=== PATIENT | female | born 1945 | race Caucasian/White ===

== ENCOUNTER → 2023-06-09 09:25 | Outpatient (REF) | payer OTHER, SELFPAY | LOC: HWCARD 09:25 | PROVIDERS: ATTENDING PHYSICIAN Physical Medicine & Rehabilitation; FAMILY PHYSICIAN Internal Medicine | DX: Z01.818 Encounter for other preprocedural examination (principal) | CPT/HCPCS: 93005 ==

== ENCOUNTER 2023-08-30 15:41 | Inpatient (IN) | payer OTHER, SELFPAY ==
[2023-08-30] VITALS (10 sets, daily range): BP systolic 101–157; BP diastolic 60–96; BMI 33.1; BMI 32.8
--- NOTE | 2023-08-30 10:22 | ED.GENMED ---
History of Present Illness
General
Chief Complaint: Dizziness
Source: patient
Time Seen by Provider: 08/30/23 10:08
History of Present Illness
History of Present Illness:
78-year-old female with past medical history of CVA/TIA, hypertension, hyperlipidemia presenting to the emergency department for evaluation after she started experiencing 2 days of dizziness/lightheadedness/feeling as if she were drifting or going
to fall accompanied with word finding difficulty and stating while trying to dial a number on her cell phone she would think of the number but would still dialed the wrong number. She also states she would think of the number to put in on the
television remote the wrong buttons. She contacted her primary care provider this morning who recommended patient come to the emergency department for further evaluation. Patient states no new symptoms at this time. Yesterday she also noted some
pain on the right upper extremity but states this is resolved. Patient takes daily Plavix for which she reports good compliance with. She is also on a statin. She is otherwise denying any palpitations, chest pain, shortness of breath, headache,
visual disturbances or any other concerns presently.
Past History
Past History
ED Past Medical History: CVA, HTN and Hypercholesterolemia
ED Past Surgical History: Cardiac, Gynecological, Orthopedic and Tonsilectomy
Social History
Tobacco: Non-smoker
Alcohol: None
Drug: None
Personal:
Living: with family
Review of Systems
Review of Systems
All Other Systems: ROS reviewed and negative except as documented in HPI and ROS
Phy Exam
Physical Exam
Physical Exam:
GENERAL: Alert , in no apparent distress
Head: Normocephalic atraumatic
EYE: pupils equal and reactive, 4 mm bilateral, EOMI, no visual field cuts
NECK: Supple
ENT: o/p clr, mmm.
CARDIAC: Regular rate and rhythm, no murmur.
LUNGS: Clear breath sounds bilaterally, no acute respiratory distress, no wheezes/rales/rhonchi
ABDOMEN: Soft, without focal tenderness, no r/g, no cvat
NEUROLOGICAL: Alert and oriented x 3, no focal neuro deficits, moves all extremities, sensation grossly intact to light touch, no ataxia, no dysmetria or dysarthria or aphasia
SKIN: Warm and dry, skin intact.
MUSCULOSKELETAL: well perfused.
PSYCH: Normal and appropriate interaction.
Scores
NIH Stroke Score
Level of Consciousness: 0 - Alert
LOC Questions: 0-Answers both correctly
LOC Commands: 0-Performs both correctly
Best Horizontal Gaze: 0-Normal
Visual Rivera: 0=Normal, no visual loss
Facial Palsy: 0=Normal, symmetrical
Motor - Right Arm: 0=No drift 10 seconds
Motor - Left Arm: 0=No drift 10 seconds
Motor - Right Le-No drift 5 seconds
Motor - Left Le-No drift 5 seconds
Limb Ataxia: 0-Absent
Sensation: 0-Normal
Best Language: 0-No aphasia
Dysarthria: 0-Normal
Extinction and Inattention: 0-No abnormality
Total Score:: 0
Heart Failure Risk
Heart Failure Risk Score: Not Applicable
Heart Score for Chest Pain Patients
STEMI patient?: Not applicable
Withdrawal Assessment of Alcohol
Withdrawal Assessment Completed?: Not applicable
Course
Orders/Labs/Results
Orders:
Orders
08/30/23 09:10
CT Head W/o Iv Contrast Urgent
Comment:
Reason For Exam: dizziness and forgetting things
08/30/23 09:53
Electrocardiogram (*1) Urgent
Reason for Study: Vertigo / Dizzy
08/30/23 09:54
EKG- Treatment ONCE
08/30/23 09:56
Basic Metabolic Panel Urgent
Complete Blood Count/With Diff Urgent
Troponin I Urgent
08/30/23 10:20
Aspirin 325 mg PO NOW STA
Clopidogrel Bisulfate [Plavix] 225 mg PO NOW STA
08/30/23 11:41
Echo 2D MMode Color/Doppler Routine
Reason for Study: Thrombotic source for stroke-like sxs
MA [place] Routine
Comment:
Reason For Exam: intracranial stenosis
Recent pill cam endoscopy?: No
MA Neck With Contrast Routine
Reason For Exam: stenosis
Recent pill cam endoscopy?: No
MR Brain Without Contrast Routine
Comment:
Reason For Exam: Eval right BG stroke
Recent pill cam endoscopy?: No
NIH Stroke Scale As Directed
Neurological Checks As Directed
Frequency: Per unit guidelines
08/30/23 14:54
Occupational Therapy Consult [Ot Eval And Treat] Routine
Physical Therapy Consult [Pt Eval And Treat] Routine
Activity Level: Out of Bed- Chair
08/30/23 18:00
Rosuvastatin Calcium [Crestor] 40 mg PO QPM
08/31/23 08:00
Aspirin Low Dose EC [Aspir Low (Enteric Coated)] 81 mg PO DAILY
Clopidogrel Bisulfate [Plavix] 75 mg PO DAILY
Abnormal Lab Results
08/30/23
09:56
MPV 12.2 H fL
(7.4-10.4)
Lymphocytes % 19.5 L %
(20.5-51.1)
BUN 26 H mg/dl
(7-17)
Glucose 144 H mg/dl
(70-99)
08/30/23 09:56
08/30/23 09:56
Vital Signs
Initial and Last Documented VS:
Initial Vital Signs
Temp Pulse Resp BP Pulse Ox
98.0 F 102 16 111/81 98
08/30/23 09:05 08/30/23 09:05 08/30/23 09:05 08/30/23 09:05 08/30/23 09:05
Last Documented Vital Signs
Temp Pulse Resp BP Pulse Ox
98.0 F 102 16 118/80 98
08/30/23 09:05 08/30/23 09:05 08/30/23 09:05 08/30/23 11:00 08/30/23 09:05
MDM/Problems Addressed
Differential Diagnosis Includes:
CVA/TIA, less likely a metabolic encephalopathy, electrolyte disturbance
MDM/Problems Addressed:
78-year-old female presenting the emergency department for evaluation of lightheadedness/dizziness, word finding difficulty and difficulty using cell phone as well as Performing routine tasks. There are no fevers or infectious symptoms. Patient
is without any focality on her neuroexam. Head CT, labs and EKG ordered. Will discuss case with neuro. Reassessment following
Chronic conditions affecting care: Neurological disorder (Previous CVA/TIA)
Acute Exacerbation and/or Progression of Chronic Illness: Neurological disorder (New CVA)
*Radiology
Radiology exam reviewed: radiology read reviewed (Patient appears to have a new CVA within the left internal capsule/parietal lobe)
*Pulse Oximetry
Patient hypoxic: no
*Doctor Naturopathic Interpretation
Rate: normal
Rhythm: sinus
*Critical Care Note
Total Time (30-74mins, 75-104mins- exclusive of procedures): Not Applicable
Data Reviewed
Review of Other/Old Records Reveals: Labs and Records
Source: patient
Patient Management
Discussion with other providers: Hospitalist, Director Of Retention and Radiologist
Escalation/DeEscalation of care consider admission/obs:
Informed by neurology that patient has a hypoattenuation within the left internal capsule/parietal lobe which is new compared to prior study concerning for cerebral infarction. Discussed with neurology who would like aspirin and Plavix load.
Patient already took 75 mg of Plavix earlier this morning so 225 mg was ordered. Hospitalist team notified and accepts for continued evaluation and treatment of suspected new CVA.
ED Attending Note
-
Portions of this chart may have been created with voice recognition software.� Occasional wrong word or��sound alike� substitutions may have occurred due to the inherent limitations of voice recognition software.
Discharge Plan
Departure
Patient Disposition: Admit
Date of Disposition: 08/30/23
Time of Disposition: 10:22
Presentation/result/management discussed w/ accepting MD/DO: Hospitalist
Discharge Problem:
Ischemic cerebrovascular accident (CVA)
Prescriptions:
No Action
lisinopril 20 MG tablet
20 mg PO DAILY
clopidogrel [Plavix] 75 MG tablet
75 mg PO DAILY
hydrochlorothiazide 25 MG tablet
25 mg PO DAILY
rosuvastatin 20 MG tablet
20 mg PO QPM Qty: 30 0RF
Systane (PF) 0.4-0.3 % Dropperette
1 drp BOTH EYES BIDPRN PRN (Reason: dry eyes)
Referrals:
Luis Fernando Mittal MD [Family Provider] -
Interventions
Interventions:
*Risk Screen - Suicide Last Done: 08/30/23 10:44
*Neglect/Abuse Screening Last Done: 08/30/23 10:44
ED- Neurological Assessment Last Done: 08/30/23 14:39
ED- Cardiac Assessment Last Done: 08/30/23 10:44
ED Swallowing Screen Last Done: 08/30/23 10:44
Discharge Date and Time
Print Language: K[place]
[2023-08-30 10:34] LABS: Blood Urea Nitrogen 26 mg/dl (7-17); Calcium 9.4 mg/dl (8.4-10.2); Carbon Dioxide 24 mmol/L (22-30); Chloride 106 mmol/L (98-107); Glucose 144 mg/dl (70-99); Potassium 3.7 mmol/L (3.5-5.1); Sodium 139 mmol/L (135-145); eGFR 58.02
[2023-08-30] MEDS: PLAVIX 225 MG PO (10:37)
[2023-08-30] MEDS: ASPIRIN 325 MG PO (10:37)
[2023-08-30 10:40] LABS: Troponin I < 0.012 ng/ml
[2023-08-30 11:24] LABS: % Basophils 0.6 % (0-2); % Eosinophils 0.4 % (0-6); % Immature Granulocytes 0.3 % (0-0.5); % Lymphocytes 19.5 % (20.5-51.1); % Monocytes 8.1 % (1.7-9.3); % Neutrophils 71.1 % (42.2-75.2); Absolute Basophils 0.1 10^3/uL (0-0.2); Absolute Lymphocytes 1.5 10^3/uL (1.2-3.4); Absolute Monocytes 0.6 10^3/uL (0.1-0.6); Absolute Neutrophils 5.5 10^3/uL (1.4-6.5); Hematocrit 38.4 % (37.0-47.0); Mean Corp Hgb Conc. 33.9 g/dL (33.0-37.0); Mean Corpuscular Hgb 30.4 pg (27.0-31.0); Mean Corpuscular Volume 89.9 fL (81.0-99.0); Mean Platelet Volume 12.2 fL (7.4-10.4); Nucleated Red Blood Cells % 0 %; Platelet Count 212 10^3/uL (130-400); Red Blood Cell Count 4.27 10^6/uL (4.20-5.40); Red Cell Dist. Width 12.9 % (11.5-14.5); White Blood Cell Count 7.8 10^3/uL (4.8-10.8)
--- NOTE | 2023-08-30 15:32 | HPS.HSE ---
Addendum entered and electronically signed by Alvaro Ahn MD 08/30/23 17:15:
I saw and examined the patient.
The PEN MAKER or PA's note was reviewed and I agree with the note.
Comment: 78 y/o female with a PMH of CVA/TIA, PFO Closure, HTN, and HLD who reports to the ED for dizziness and word finding difficulty x 2 days.. Found to have acute cva Left Internal Capsule. Neuro consulted. no carotid stenosis. DAPT. pt/ot/st.
a1c, lipid panel f/u. permissive htn.ECHO
Original Note:
Family Physician
-
Family Physician: Luis Fernando Mittal
Chief Complaint
-
Speech Difficulty
History of Present Illness
Patient is a 78 y/o female with a PMH of CVA/TIA, PFO Closure, HTN, and HLD who reports to the ED for dizziness and word finding difficulty x 2 days. Patient states she has been dizzy for the past week. Over the weekend she started to having
difficulty finding words, trouble using her cell phone and the remote for her television. She called her PCP office today and was advised to come to the ED. She has also been having headaches x 2 weeks that were relieved with Tylenol. She has a
history of migraines but hasn't had a headache in years. She a history of a CVA 20 years ago and a TIA 6 years ago. She takes Plavix daily and reports compliance. She denies chest pain, palpitations, shortness of breath, vision changes, fever, or
chills. She denies smoking and alcohol use
Medical History
Past Medical History
Past Medical History: Reports Other
Additional Past Medical History:
Essential Hypertension
Hyperlipidemia
CVA/TIA
Anxiety/Depression
Past Surgical History: Reports Other
Additional Past Surgical History:
PFO Closure
Hysterectomy
Uvular and Tonsillectomy
Deviated Septum Repair
Left Rotator Cuff
Right Knee Meniscal Tear
Social History
Tobacco: Non-smoker
Alcohol: None
Family History
Family History: Not pertinent
Allergies / Home Medications
Allergies reflects when Allergies were last updated in [employer].
Home Medications with original date entered in [employer]
Allergy/Medication List:
Allergies
Allergy/AdvReac Type Severity Reaction Status Date / Time
penicillin G Allergy Swelling Verified 08/30/23 09:08
Penicillins Allergy Swelling Verified 08/30/23 09:08
warfarin Allergy Rash Verified 08/30/23 09:08
[id number] - Not Allergy Unknown Uncoded 08/30/23 09:08
Converted 38. See Text.
Home Medications
clopidogrel 75 mg tablet (Plavix) 75 mg PO DAILY 01/05/17
hydrochlorothiazide 25 mg tablet 25 mg PO DAILY 01/05/17
lisinopril 20 mg tablet 20 mg PO DAILY 01/05/17
rosuvastatin 20 mg tablet 20 mg PO QPM ##30 01/06/17
peg 400-propylene glycol (PF) 0.4 %-0.3 % eye drops in a dropperette (Systane (PF)) 1 drp BOTH EYES BIDPRN PRN dry eyes 08/30/23
Review of Systems
-
A 12 point ROS was completed and negative except as noted: Yes
Constitutional: Denies Fever or Chills
Respiratory: Denies Cough or Trouble Breathing
Cardiac: Denies Chest Pain or Palpitations
Abdomen/GI: Denies Abdominal Pain, Nausea, Vomiting or Diarrhea
Physical Exam
Vital Signs
Vital Signs
Temp Pulse Resp BP Pulse Ox
98.0 F 102 16 118/80 98
08/30/23 09:05 08/30/23 09:05 08/30/23 09:05 08/30/23 11:00 08/30/23 09:05
Physical Exam
General: Comfortable and Conversant
HEENT: Anicteric and Moist mucous membranes
Respiratory: Clear and Non Labored Respirations
Cardiac: S1/S2 and Regular Rhythm
GI: Soft and Non Tender
Rectal: Deferred by Provider
Musculoskeletal: No Clubbing, No Cyanosis and No Edema
Skin: Warm and Dry
Neuro: Awake, Alert, Oriented and Other (Speech is slow with occasional word finding difficulty during my evaluation)
Psych: Calm
Laboratory Results
-
08/30/23 09:56
08/30/23 09:56
Laboratory Results
Total Bilirubin Cancelled 08/30/23 09:56
AST Cancelled 08/30/23 09:56
ALT Cancelled 08/30/23 09:56
Alkaline Phosphatase Cancelled 08/30/23 09:56
Troponin I < 0.012 ng/ml 08/30/23 09:56
Data Reviewed
-
CT Scan: Report Reviewed by me
MRI: Report Reviewed by me
Lab Data: Labs Reviewed by me
Impression/Plan
-
Acute Stroke of Left Internal Capsule
-Consult Neurology
-Continue Aspirin and Plavix
-Check HgbA1c and FLP
-Check Echo
-Consult PT/OT and Speech
Essential Hypertension
-Goal is normotension as onset of symptoms was over 24 hours ago
-Continue Lisinopril and HCTZ
Hyperlipidemia
-Continue Crestor - Dose increased by Neurology
DVT proph: SCDs
Code Status: Full Code
--- NOTE | 2023-08-30 18:40 | PTCARENOTE ---
Received pt from ED.Pt awake, alert and oriented x3. Pt has no c/o pain at this time, VSS 95% on RA, NSR on tele. Pt NIH: 1 Some very mild aphasia noted, pt does report this was one of the symptoms that prompted her coming to ER. Pt also notes some
dizziness with standing, instructed to ring for assistance, verbalized understanding. Pt oriented to room, call lmi within reach, plan of care continues.
[2023-08-31] VITALS (8 sets, daily range): BP systolic 87–148; BP diastolic 55–78; PULSE 69; O2SAT 98; BMI 32.8
[2023-08-31 05:35] LABS: Hemoglobin 11.6 g/dL (12.0-16.0); Mean Corp Hgb Conc. 34.1 g/dL (33.0-37.0); Mean Corpuscular Hgb 31.4 pg (27.0-31.0); Mean Corpuscular Volume 91.9 fL (81.0-99.0); Mean Platelet Volume 11.9 fL (7.4-10.4); Platelet Count 166 10^3/uL (130-400); Red Cell Dist. Width 12.9 % (11.5-14.5); White Blood Cell Count 6.1 10^3/uL (4.8-10.8)
[2023-08-31 05:48] LABS: Blood Urea Nitrogen 20 mg/dl (7-17); Calcium 9.4 mg/dl (8.4-10.2); Carbon Dioxide 28 mmol/L (22-30); Chloride 104 mmol/L (98-107); Estimated Creatinine Clearance 42 ml/min; Glucose 93 mg/dl (70-99); HDL Cholesterol 53 mg/dl; LDL Cholesterol, Calculated 68 mg/dl; Potassium 3.6 mmol/L (3.5-5.1); Sodium 140 mmol/L (135-145); Total Cholesterol 142 mg/dl (50-199); Triglyceride 106 mg/dl (10-149); Very Low Density Lipoprotein 21 mg/dl (0-30); eGFR 51.75
[2023-08-31] MEDS: PLAVIX 75 MG PO (08:40)
[2023-08-31] MEDS: ASPIR LOW (ENTERIC COATED) 81 MG PO (08:40)
--- NOTE | 2023-08-31 08:44 | CON.NEURO4 ---
Documented by User: China Sullivan NP 08/31/23 10:35
Consultation - Neurology 4
-
CONSULTING PHYSICIAN: Cristhian Gonzales MD
REFERRING PHYSICIAN: Hospitalists/Radha Salas PA-C
DICTATED BY: ANGELO Martinez
DATE/TIME OF REQUEST: 08/30/23
DATE/TIME OF CONSULTATION: 08/31/23
Reason for Consultation: CVA
History of Present Illness:
This is a 78-year-old right-handed female who has presented to the hospital on 08/30/23 with report of word finding difficulty, feeling off-balance, and difficulty using electronic devices. Patient has a PMH of right occipital CVA in 2000 and was
evaluated by our inpatient Neurology service in December 2016 for dizziness and unsteady gait. MRI brain 01/05/17 was negative, her symptoms resolved and the event was deemed BPPV.
From previous evaluation by Neurology ANGELO Prajapati on 01/05/17:
'This is a 71 year old right handed female who has presented to the hospital with sudden onset of dizziness with room spinning sensation followed by nausea and unsteady gait. Patient's symptoms began at 0230am when she awoke from sleep and felt
like there was an earthquake going on and the room was spinning around her. She got out of bed to go to the window and was unsteady on her feet and eventually fell to the ground. She lay there for a little while and then eventually got up, went to
the bathroom and went back to bed. She was normal prior to going to sleep at 2300. Around 345am she developed nausea and vomiting 'foam but no food' so decided she should come to the hospital. She denies any associated double vision, ringing in the
ear, hearing loss, recent URI, speech changes or focal weakness or numbness or hand coordination difficulty. She did feel the dizziness worsened with changing position and walking and improves when she closes her eyes. The dizziness occurs when
opening her eyes but it improves as she keeps her eyes open. She does feel the dizziness is improved and her gait is improved but not back to normal. She developed perioral numbness that started upon arrival to the floor. She is on Plavix for her
prior stroke but did skip the last 2 days doses accidentally. She had a history of dizziness with LUQ field cut in 2000 at which time she had a posterior circulation stroke which was felt to be caused by her migraine history as well as a PFO which
was subsequently surgically closed. She followed up with a neurologist Dr. Milligan for her stroke and migraine history but he retired and she has not seen one in a few years since then. Her last migraine was over a year ago. She denies any residual
deficits from her stroke, her vision returned slowly over a year.'
Patient has been taking Plavix 75mg daily since her stroke in 2000 and denies missing any doses. One week ago, she reports feeling dizzy, which she describes as off-balance. This sensation has fluctuated, resolves at times but is currently present.
Two days later on 08/27/23 she reports starting to have difficulty with word finding which has persisted. On 08/28/23 she reports having a sensation change in her RUE that has since resolved. Then on 08/29/23 she reports suddenly having difficulty
using her cell phone and her TV remote. Initially she was concerned her symptoms were associated with new onset Alzheimer's disease, she called her PCP yesterday (08/30/23) and was referred to the ER for for evaluation. CT head was obtained on
arrival and demonstrates a new focus of hypoattenuation within the left internal capsule/parietal lobe concerning for ischemic infarct. She was not a candidate for TNK/IAT due to being outside of the time window. Currently, she reports ongoing word
finding difficulty, unsteadiness, and a right posterior throbbing 3/10 head discomfort. She denies any vision changes, swallowing difficulty, numbness, weakness, nausea, chest pain, palpitations, and shortness of breath.
Past Medical History: R occipital ischemic stroke 2000, HTN, HLD, migraines, ocular migraines, BPPV, basal cell carcinoma, JAZ, anxiety, osteoporosis, diverticulitis, lumbar radiculopathy/spondylosis
Surgical History: PFO closure 2010, hysterectomy, tonsillectomy, uvula removal, septal defect repair, rotator cuff repair, knee surgery, L4-S1 TFESI
Family History: Sister- CVA age 50.
Social History: Denies alcohol, tobacco, and illicit drug use.
Allergies: Penicillins, warfarin.
Home Medications: See below.
Review of Symptoms:
Patient denies any fever, headache, chest pain, shortness of breath, GI or symptoms.
�Per the HPI.�All systems are reviewed negative except above.
Physical Exam:
The patient is afebrile, abdomen is nondistended, breathing is unlabored, skin is warm and dry, no edema.
NIH Stroke Scale:
I performed the NIH stroke scale on the patient on 08/31/23 at 0845. The patient scored ( ) points on the NIH stroke scale assessment, which were assigned as follows: See below.
Neurologic Examination:
The patient is awake, alert and oriented x 3. She is able to follow commands and answer questions appropriately. There is no aphasia or dysarthria. On cranial nerve assessment, pupils are 3 mm bilateral, round and reactive to light and
accommodation. Visual rivera are full. Extraocular movements are limited with up and down gaze. Facial sensations are intact and bilaterally symmetrical, there is no facial asymmetry. Hearing is intact bilaterally to normal conversation volume.
Uvula has been removed. Sternocleidomastoid strengths are full bilaterally. Motor strengths are 5/5 bilateral upper and lower extremities on medical research Stebbins scale. There is no drift or involuntary movement noted. Deep tendon reflexes are 2+
bilateral upper and lower extremities and Babinski is absent bilaterally. Sensations of pain, touch, temperature and vibration are intact and bilaterally symmetrical. There was no extinction noted on double simultaneous stimulation. Coordination is
intact by finger to nose bilaterally.
Lab Results: See below.
Neuro Imaging:
1. MRI brain 08/30/23: On the left, there is a focal area of abnormal restricted diffusion compatible with subacute infarction, corresponding to the region of decreased density seen on recent CT examination. See above description for measurements and
location. No other focal area of acute to subacute infarction. Mild to moderate diffuse atrophy. Mild to moderate T2 and FLAIR white matter hyperintensities, commonly seen with aging and usually attributed to small vessel ischemic disease. Focal
areas of old infarction as described.
2. MRA head/neck 08/30/23: No significant stenosis involving the intracranial circulation. Narrowing involving the proximal right ICA, measured diameter reduction of 41%. By measurement, and subjectively, this is unlikely to represent a
hemodynamically significant stenosis. Less than 25% diameter reduction of the left carotid bulb and left proximal ICA. No significant narrowing of the vertebral or basilar arteries.
Differentials for the patient's presentation include:
1. Subacute left lentiform nucleus/left internal capsule ischemic stroke; appearance supportive of hypertensive etiology but patient reports well-controlled blood pressure. Concern for potential cardiac or hypercoaguable source as this is her
second ischemic stroke.
2. Old right occipital ischemic stroke.
3. History of septal defect repair and PFO closure.
Patient has the following risk factors for their symptoms: Previous CVA, HTN, age
IV Tenecteplase/IAT candidacy: She was not a candidate for TNK/IAT due to being outside of the time window.
Recommendations:
-Continue DAPT with aspirin 81mg and Plavix 75mg daily for 21 days. Plavix efficacy testing pending.
-Cardiology evaluation, patient may benefit from LINQ monitoring.
-Goal normotension as it is greater than 24 hours from symptom onset.
-Provide prochlorperazine 10mg PO x1 now for head discomfort.
-LDL goal <70. LDL is 68. Home rosuvastatin 20mg daily increased to 40mg daily.
-Goal normoglycemia, hbA1c is 5.5.
-NIHSS and neurological checks per unit guidelines.
-Provide patient with stroke education packet.
-PT/OT/ST evaluations.
-DVT prophylaxis.
-Check hypercoagulable labs as an outpatient in 6 weeks.
-Patient should follow-up with Neurology as an outpatient, may see one of the physicians or the REGISTERED ART THERAPIST.
Discussed patient care with: Dr. Gonzales, the patient
Vital Signs and Labs
-
Vital Signs and Labs:
Vital Signs
Temp Pulse Resp BP Pulse Ox
98.2 F 59 16 130/71 98
08/31/23 07:20 08/31/23 07:20 08/31/23 07:20 08/31/23 07:20 08/31/23 07:20
Lab Results
08/31/23 04:29
08/31/23 04:29
Sodium 140 mmol/L (135-145) 08/31/23 04:29
Potassium 3.6 mmol/L (3.5-5.1) 08/31/23 04:29
BUN 20 mg/dl (7-17) H 08/31/23 04:29
Glucose 93 mg/dl (70-99) 08/31/23 04:29
Calcium 9.4 mg/dl (8.4-10.2) 08/31/23 04:29
LDL Cholesterol, Calc 68 mg/dl 08/31/23 04:29
Medications
-
Active Medications
Generic Name Dose Route Start Last Admin
Trade Name Freq PRN Reason Stop Dose Admin
Acetaminophen 650 mg 08/30/23 18:24
Acetaminophen 325 Mg Tablet PO 09/27/23 18:23
Q4HPRN PRN
mild pain/ fever>100.5F
Aspirin 81 mg 08/31/23 08:00 08/31/23 08:40
Aspirin 81 Mg (Enteric Coated) Tablet PO 09/28/23 07:59 81 mg
DAILY DEANNA Administration
Clopidogrel Bisulfate 75 mg 08/31/23 08:00 08/31/23 08:40
Clopidogrel 75 Mg Tablet PO 09/20/23 08:01 75 mg
DAILY DEANNA Administration
Hydralazine HCl 10 mg 08/30/23 18:24
Hydralazine 20 Mg/Ml Vial IV 09/27/23 18:23
Q4HPRN PRN
SBP>220
Prochlorperazine Maleate 10 mg 08/31/23 15:00
Prochlorperazine 10 Mg Tablet PO 09/28/23 14:59
Q6HPRN PRN
headache
Rosuvastatin Calcium 40 mg 08/31/23 18:00
Rosuvastatin (Crestor) 40 Mg Tablet PO 09/28/23 17:59
QPM DEANNA
Sodium Chloride 0 flush 08/30/23 17:00
Sodium Chloride 0.9% (Flush) Syringe IV 09/27/23 16:59
PER PROTOCOL DEANNA
Home Medications
�Medication �Instructions �Recorded
clopidogrel 75 mg tablet (Plavix) 75 mg PO DAILY Blood Clot 01/05/17
Prevention/Tx
hydrochlorothiazide 25 mg tablet 25 mg PO DAILY Fluid 01/05/17
Retention/Swelling
lisinopril 20 mg tablet 20 mg PO DAILY Blood Pressure 01/05/17
peg 400-propylene glycol (PF) 0.4 1 drp BOTH EYES BIDPRN PRN dry eyes 08/30/23
%-0.3 % eye drops in a dropperette
(Systane (PF))
rosuvastatin 20 mg tablet 20 mg PO QPM High Cholesterol 08/31/23
NIH Stroke Score
Subsequent NIH Scale
Date of Subsequent NIH Scale: 08/31/23
Time of Subsequent NIH Scale: 08:45
NIH Stroke Score
Level of Consciousness: 0 - Alert
LOC Questions: 0-Answers both correctly
LOC Commands: 0-Performs both correctly
Best Horizontal Gaze: 0-Normal
Visual Rivera: 0=Normal, no visual loss
Facial Palsy: 0=Normal, symmetrical
Motor - Right Arm: 0=No drift 10 seconds
Motor - Left Arm: 0=No drift 10 seconds
Motor - Right Le-No drift 5 seconds
Motor - Left Le-No drift 5 seconds
Limb Ataxia: 0-Absent
Sensation: 0-Normal
Best Language: 1-Mild aphasia
Dysarthria: 0-Normal
Extinction and Inattention: 0-No abnormality
Total Score:: 1
Modified [place] (mRS) Score
Modified [place] Scale (mRS): No significant disability. Able to carry out usual activities.
Score: 1
Alteplase Contraindication
Inclusion and Exclusion criteria reviewed: Yes
Reasons for NON-Tx with Thrombolytics ABSOLUTE Exclusions: Greater than 4.5 hrs from onset of sxs

Documented by User: Cristhian Gonzales MD 08/31/23 13:44
Consultation - Neurology 4
-
CONSULTING PHYSICIAN: Cristhian Gonzales MD
REFERRING PHYSICIAN: Hospitalists/Radha Salas PA-C
DICTATED BY: ANGELO Martinez
DATE/TIME OF REQUEST: 08/30/23
DATE/TIME OF CONSULTATION: 08/31/23
Reason for Consultation: CVA
History of Present Illness:
This is a 78-year-old right-handed female who has presented to the hospital on 08/30/23 with report of word finding difficulty, feeling off-balance, and difficulty using electronic devices. Patient has a PMH of right occipital CVA in 2000 and was
evaluated by our inpatient Neurology service in December 2016 for dizziness and unsteady gait. MRI brain 01/05/17 was negative, her symptoms resolved and the event was deemed BPPV.
From previous evaluation by Neurology ANGELO Prajapati on 01/05/17:
'This is a 71 year old right handed female who has presented to the hospital with sudden onset of dizziness with room spinning sensation followed by nausea and unsteady gait. Patient's symptoms began at 0230am when she awoke from sleep and felt
like there was an earthquake going on and the room was spinning around her. She got out of bed to go to the window and was unsteady on her feet and eventually fell to the ground. She lay there for a little while and then eventually got up, went to
the bathroom and went back to bed. She was normal prior to going to sleep at 2300. Around 345am she developed nausea and vomiting 'foam but no food' so decided she should come to the hospital. She denies any associated double vision, ringing in the
ear, hearing loss, recent URI, speech changes or focal weakness or numbness or hand coordination difficulty. She did feel the dizziness worsened with changing position and walking and improves when she closes her eyes. The dizziness occurs when
opening her eyes but it improves as she keeps her eyes open. She does feel the dizziness is improved and her gait is improved but not back to normal. She developed perioral numbness that started upon arrival to the floor. She is on Plavix for her
prior stroke but did skip the last 2 days doses accidentally. She had a history of dizziness with LUQ field cut in 2000 at which time she had a posterior circulation stroke which was felt to be caused by her migraine history as well as a PFO which
was subsequently surgically closed. She followed up with a neurologist Dr. Milligan for her stroke and migraine history but he retired and she has not seen one in a few years since then. Her last migraine was over a year ago. She denies any residual
deficits from her stroke, her vision returned slowly over a year.'
Patient has been taking Plavix 75mg daily since her stroke in 2000 and denies missing any doses. One week ago, she reports feeling dizzy, which she describes as off-balance. This sensation has fluctuated, resolves at times but is currently present.
Two days later on 08/27/23 she reports starting to have difficulty with word finding which has persisted. On 08/28/23 she reports having a sensation change in her RUE that has since resolved. Then on 08/29/23 she reports suddenly having difficulty
using her cell phone and her TV remote. Initially she was concerned her symptoms were associated with new onset Alzheimer's disease, she called her PCP yesterday (08/30/23) and was referred to the ER for for evaluation. CT head was obtained on
arrival and demonstrates a new focus of hypoattenuation within the left internal capsule/parietal lobe concerning for ischemic infarct. She was not a candidate for TNK/IAT due to being outside of the time window. Currently, she reports ongoing word
finding difficulty, unsteadiness, and a right posterior throbbing 3/10 head discomfort. She denies any vision changes, swallowing difficulty, numbness, weakness, nausea, chest pain, palpitations, and shortness of breath.
Past Medical History: R occipital ischemic stroke 2000, HTN, HLD, migraines, ocular migraines, BPPV, basal cell carcinoma, JAZ, anxiety, osteoporosis, diverticulitis, lumbar radiculopathy/spondylosis
Surgical History: PFO closure 2010, hysterectomy, tonsillectomy, uvula removal, septal defect repair, rotator cuff repair, knee surgery, L4-S1 TFESI
Family History: Sister- CVA age 50.
Social History: Denies alcohol, tobacco, and illicit drug use.
Allergies: Penicillins, warfarin.
Home Medications: See below.
Review of Symptoms:
Patient denies any fever, headache, chest pain, shortness of breath, GI or symptoms.
�Per the HPI.�All systems are reviewed negative except above.
Physical Exam:
The patient is afebrile, abdomen is nondistended, breathing is unlabored, skin is warm and dry, no edema.
NIH Stroke Scale:
I performed the NIH stroke scale on the patient on 08/31/23 at 0845. The patient scored ( ) points on the NIH stroke scale assessment, which were assigned as follows: See below.
Neurologic Examination:
The patient is awake, alert and oriented x 3. She is able to follow commands and answer questions appropriately. There is no aphasia or dysarthria. On cranial nerve assessment, pupils are 3 mm bilateral, round and reactive to light and
accommodation. Visual rivera are full. Extraocular movements are limited with up and down gaze. Facial sensations are intact and bilaterally symmetrical, there is no facial asymmetry. Hearing is intact bilaterally to normal conversation volume.
Uvula has been removed. Sternocleidomastoid strengths are full bilaterally. Motor strengths are 5/5 bilateral upper and lower extremities on medical research Stebbins scale. There is no drift or involuntary movement noted. Deep tendon reflexes are 2+
bilateral upper and lower extremities and Babinski is absent bilaterally. Sensations of pain, touch, temperature and vibration are intact and bilaterally symmetrical. There was no extinction noted on double simultaneous stimulation. Coordination is
intact by finger to nose bilaterally.
Lab Results: See below.
Neuro Imaging:
1. MRI brain 08/30/23: On the left, there is a focal area of abnormal restricted diffusion compatible with subacute infarction, corresponding to the region of decreased density seen on recent CT examination. See above description for measurements and
location. No other focal area of acute to subacute infarction. Mild to moderate diffuse atrophy. Mild to moderate T2 and FLAIR white matter hyperintensities, commonly seen with aging and usually attributed to small vessel ischemic disease. Focal
areas of old infarction as described.
2. MRA head/neck 08/30/23: No significant stenosis involving the intracranial circulation. Narrowing involving the proximal right ICA, measured diameter reduction of 41%. By measurement, and subjectively, this is unlikely to represent a
hemodynamically significant stenosis. Less than 25% diameter reduction of the left carotid bulb and left proximal ICA. No significant narrowing of the vertebral or basilar arteries.
Differentials for the patient's presentation include:
1. Subacute left lentiform nucleus/left internal capsule ischemic stroke; appearance supportive of hypertensive etiology but patient reports well-controlled blood pressure. Concern for potential cardiac or hypercoaguable source as this is her
second ischemic stroke.
2. Old right occipital ischemic stroke.
3. History of septal defect repair and PFO closure.
Patient has the following risk factors for their symptoms: Previous CVA, HTN, age
IV Tenecteplase/IAT candidacy: She was not a candidate for TNK/IAT due to being outside of the time window.
Recommendations:
-Continue DAPT with aspirin 81mg and Plavix 75mg daily for 21 days. Plavix efficacy testing pending.
-Cardiology evaluation, patient may benefit from LINQ monitoring.
-Goal normotension as it is greater than 24 hours from symptom onset.
-Provide prochlorperazine 10mg PO x1 now for head discomfort.
-LDL goal <70. LDL is 68. Home rosuvastatin 20mg daily increased to 40mg daily.
-Goal normoglycemia, hbA1c is 5.5.
-NIHSS and neurological checks per unit guidelines.
-Provide patient with stroke education packet.
-PT/OT/ST evaluations.
-DVT prophylaxis.
-Check hypercoagulable labs as an outpatient in 6 weeks.
-Patient should follow-up with Neurology as an outpatient, may see one of the physicians or the REGISTERED ART THERAPIST.
Discussed patient care with: Dr. Gonzales, the patient
NIH Stroke Score
NIH Stroke Score
Total Score:: 1
Modified [place] (mRS) Score
Score: 1
[2023-08-31 09:07] LABS: Glycohemoglobin (HgbA1c) 5.5 % (4.0-5.6)
--- NOTE | 2023-08-31 09:16 | PTOTSP ---
Speech Therapy
Patient presents with a mild word finding difficulty, and occasional paraphasic errors. Mild motor speech difficulty observed during assessment, as well as reported by the patient. Swallowing deemed within functional limits.
Recommend
1. No changes to diet - maintain regular solids and thin liquids
2. Follow up ST during acute care stay as able. Comprehensive assessment of speech and language skills recommended in next level of care. Information on OP rehab provided to patient.
[2023-08-31] MEDS: COMPAZINE 10 MG PO ×3 (09:32→23:38)
--- NOTE | 2023-08-31 10:58 | CON.CAR ---
Addendum entered and electronically signed by Hakan Olmstead MD 08/31/23 14:36:
Seen and examined agree with FM PGY 2 note below.
78 year old with history of CVA 2000, PFO closure 2000 who presented with acute CVA ( word finding issue sterling difficulty using electronic devices). MRI with CVA. Patient in NSR.Echo technically difficult but otherwise unremarkable. Still with some
word finding issues and difficulty using phone. Etiology of CVA unclear. Telemetry with NSR. No clear cardiac source at this time. Reviewed wit the patient
- NPO for [place] tomorrow
- Telemetry
- - if [place]A unremarakable and no afib on monitor then consider implantable loop
Original Note:
Consultation
Consultation Request
Date/Time Consultation Requested: 08/31/23 9:23am
Date/Time Consultation Performed: 08/31/23 12:00pm
Requesting Provider: Alvaro Lynn
Performing Provider: Coral Plascencia for Hakan Lezama
Reason for Consultation: CVA evaluation
Medical History
-
Chief Complaint: Dizziness, word finding difficulty.
History of Present Illness:
78-year-old female with PMHx significant for CVA x 2, PFO s/p closure in 2000, BPPV, HTN, HLD, ocular migraines, JAZ, anxiety, osteoporosis, diverticulitis, lumbar radiculopathy presents to the emergency room for evaluation of dizziness change in
sensation in the right upper extremity and difficulty using cell phone and TV remote. Her symptoms initially started 1 week ago with waxing and waning sensation of feeling dizzy and off balance. 2 days later on 08/26 she developed a persistent
difficulty in word finding and eventually sensation in her right upper extremity changes. On 08/29/2023-she experiences difficulty using her cell phone and TV remote its like she knows what to do with that but she cannot execute the tasks. Upon
arrival to the emergency room she was diagnosed with CVA, subacute infarct in left internal capsule/parietal lobe.-
During this episodes she denied having any chest pain, palpitations, shortness of breath, orthopnea, PND, loss of consciousness, abdominal pain, nausea, vomitings, bowel or bladder incontinence. States she will complete with her aspirin and
clopidogrel use. Last time she had to stop her clopidogrel use for 7 days was in May/2023.
She also reports to have had an admission in the hospital for stroke evaluation in 2018, and she does not recall if [place] was done. She was first diagnosed with patent foramen ovale after her first episode of CVA in 2000, and had PFO repair in 2000
at [facility] by Dr. Haynes (interventional cardiology). She was not follow-up with him for 2 years and then graduated out of follow-up. Does not have a barrel leveler that she regularly follows.
She currently still experiences difficulties with word finding, dizziness and feeling wobbly on her feet.
Past Medical History
Past Medical History: Other (CVA x 2, PFO s/p closure in 2000, BPPV, HTN, HLD, ocular migraines, JAZ, anxiety, osteoporosis, diverticulitis, lumbar radiculopathy)
Past Surgical History: Other (PFO closure in 2000, hysterectomy, tonsillectomy, uvula removal, rotator cuff repair.)
Social History
Tobacco: Non-Smoker
Alcohol: None
Drug: None
Personal:
Living: Alone
Employment: Retired
Family History
Family History: Other (Father with NH at 65, Brother with NH at 70, sister had CVA at 50, another sister had esophageal cancer and A-fib, another brother has pancreatic cancer.)
Allergies / Home Medications
Allergy/AdvReac Type Severity Reaction Status Date / Time
penicillin G Allergy Swelling Verified 08/30/23 18:25
Penicillins Allergy Swelling Verified 08/30/23 18:25
warfarin Allergy Rash Verified 08/30/23 18:25
�Medication �Instructions �Recorded �Confirmed �Type
clopidogrel 75 mg tablet (Plavix) 75 mg PO DAILY Blood Clot 01/05/17 08/30/23 History
Prevention/Tx
hydrochlorothiazide 25 mg tablet 25 mg PO DAILY Fluid 01/05/17 08/30/23 History
Retention/Swelling
lisinopril 20 mg tablet 20 mg PO DAILY Blood Pressure 01/05/17 08/30/23 History
peg 400-propylene glycol (PF) 0.4 1 drp BOTH EYES BIDPRN PRN dry eyes 08/30/23 08/30/23 History
%-0.3 % eye drops in a dropperette
(Systane (PF))
rosuvastatin 20 mg tablet 20 mg PO QPM High Cholesterol 08/31/23 08/30/23 History
Review of Systems
-
History Source: Patient
Constitutional: No Symptoms
EENT: No Symptoms
Respiratory: No Symptoms
Cardiac: No Symptoms
Abdomen/GI: No Symptoms
: No Symptoms
Musculoskeletal: No Symptoms
Skin: No Symptoms
Neurological: Dizzy, Weakness and Other (Word finding difficulty, paresthesias in the right upper extremity.)
Physical Exam
Vital Signs
Temp Pulse Resp BP Pulse Ox
98.2 F 59 16 130/71 98
08/31/23 07:20 08/31/23 07:20 08/31/23 07:20 08/31/23 07:20 08/31/23 08:00
Lab Results
08/31/23 04:29
08/31/23 04:29
Troponin I < 0.012 ng/ml 08/30/23 09:56
Physical Exam
General: Well Developed and Well Nourished
HEENT: Normocephalic, Anicteric and Moist Mucous Membranes
Respiratory: Clear (Anteriorly and posteriorly across all lung lobes)
Cardiac: S1/S2 and Regular Rhythm; Negative Murmur or Rub
GI: Soft, Non Tender, Non Distended and Normal Bowel Sounds
Musculoskeletal: No Edema
Neuro: AO x 3 and Other (Mild expressive aphasia.)
Psych: Calm
Impression / Plan
-
Background -
78-year-old female with PMHx significant for CVA x 2, (2000, 2017), PFO s/p closure (2000), HTN, HLD, ocular migraines, BPPV, JAZ, basal cell carcinoma, osteoporosis, diverticulitis, lumbar radiculopathy, anxiety presents to the hospital for
evaluation of dizziness, loss of balance, paresthesias in the right upper extremity and difficulty executing tasks with cell phone and TV remote, upon presentation diagnosed with acute CVA-on 08/30/2023. Cardiology consulted for evaluation of
possible etiology for stroke.
Impression -
Acute [id number]
-Left internal capsule/parietal lobe-subacute infarct identified.
-Patient has multiple risk factors-previous stroke, hypertension, mild carotid artery disease, hyperlipidemia, age.
-History of patent short ovale s/p closure in 2000. No [place] workup as far as she can recall (she states she could not remember honestly)
-No evidence of atrial fibrillation on telemetry and EKG.
-Plan for [place] in the a.m. tomorrow, and possible placement of loop recorder.
-Patient is compliant with her aspirin and Plavix-medication failure as a diagnosis is least likely.
-Anticoagulation discussion pending-[place] workup and loop recorder placement.
Systemic hypertension-
-On HCTZ.
Hyperlipidemia-
-On rosuvastatin 20 mg at home dose bumped to 40 mg.
History of patent foramen ovale-
-Underwent minimal intervention for closure in 2000. Graduated out of cardiology follow-up in 2002.
-Not worked up in in a years after 2002.
Subjective-
Patient symptoms of dizziness,Word finding difficulty still remains about the same. Ability to use phone and TV remote improved mildly.
Data Reviewed -
Telemetry Summary - 08/31/23 - NSR, no abnormalities.
Echocardiogram-08/30/20236692-VETV-88 to 65%, normal biventricular size and function. No abnormalities.
EKG-08/30/2023-normal sinus rhythm old inferior infarct.
NECK MRA - 08/30/23 -
Narrowing involving the proximal right ICA, measured diameter reduction of 41%. By measurement, and subjectively, this is unlikely to represent a hemodynamically significant stenosis.
Less than 25% diameter reduction of the left carotid bulb and left proximal ICA.
Head MRA - 08/30/23 - No significant stenosis involving Intracranial HTN
Brain MRI - 08/30/23 -
On the left, there is a focal area of abnormal restricted diffusion compatible with subacute infarction, corresponding to the region of decreased density seen on recent CT examination.
Mild to moderate diffuse atrophy. Mild to moderate T2 and FLAIR white matter hyperintensities, commonly seen with aging and usually attributed to small vessel ischemic disease.
Head CT - 08/30/23 - - Ill defined focus of hypoattenuation within the left internal capsule/parietal lobe, new compared o prior study, measuring 1.1 cm in diameter. Old infarct in the right occipital lobe.
Data Reviewed
-
EKG: Tracing Personally Visualized and interpreted
Radiology: Report Reviewed by me
CT Scan: Report Reviewed by me
Ultrasound: Report Reviewed by me
MRI: Report Reviewed by me
Medical Tests (Nuc Med, Echo etc): Report Reviewed by me
Labs: Labs Reviewed by me
Old Records: Reviewed
[2023-08-31 11:56] LABS: VerifyNow PRU 72 PRU (180-376)
--- NOTE | 2023-08-31 13:23 | W.PN.HOSP.TC ---
Today's Communication/Plan
-
echo
cards consult
dapt
increase statin dose
Assessment / Plan
Assessment / Plan
Physical Exam
General: Comfortable and Conversant
HEENT: Anicteric and Moist mucous membranes
Respiratory: Clear and Non Labored Respirations
Cardiac: S1/S2 and Regular Rhythm
GI: Soft and Non Tender
Rectal: Deferred by Provider
Musculoskeletal: No Clubbing, No Cyanosis and No Edema
Skin: Warm and Dry
Neuro: Awake, Alert, Oriented
Psych: Calm
Acute Stroke of Left Internal Capsule
-Consult Neurology
-Continue Aspirin and Plavix - 21 days
-Check HgbA1c: 5.5; and Lipid 68
-Crestor increased to 40mg daily
-Cards consulted for PFO: may benefit from LINQ monitoring
-PT/OT/ST
-Check Echo
--Check hypercoagulable labs as an outpatient in 6 weeks.
Essential Hypertension
-Goal is normotension
-Continue Lisinopril and HCTZ
Hyperlipidemia
-Continue Crestor
DVT proph: hsq
Code Status: Full Code
Anticipated Discharge: Within 24 hours
Subjective/Interval History
-
Date of Service: August 31, 2023
no acute events today
Objective Data
-
Labs:
Laboratory Results
08/31/23
04:29
WBC 6.1
Hgb 11.6 L
Hct 34.0 L
Plt Count 166 D
Sodium 140
Potassium 3.6
Chloride 104
Carbon Dioxide 28
BUN 20 H
Creatinine 1.1 H
Glucose 93
Calcium 9.4
Vital Signs:
Vital Signs
Temp Pulse Resp BP Pulse Ox
98.7 F 67 16 146/76 98
08/31/23 11:25 08/31/23 11:25 08/31/23 11:25 08/31/23 11:25 08/31/23 11:25
I&O
08/30/23 08/31/23 09/01/23
06:59 06:59 06:59
Intake Total 100 / 100
Balance 100 / 100
Review of Systems
-
History Source: Patient
All other systems: Not reviewed unless documented
Data Reviewed
-
MRI: Image personally visualized and interpreted and Report Reviewed by me
Labs: Labs Reviewed by me
[2023-08-31] MEDS: ZESTRIL 20 MG PO (14:37)
--- NOTE | 2023-08-31 15:33 | CM ---
Chart reviewed and IA completed.
Sepideh is a 78 yo female, currently living with her ex- in a 2 story home with 1 entry step and 12 steps to the bedroom and bathroom. 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
Sepideh presented to the hospital with dizziness, forgetfulness, and losing things. She was found to have had a stroke
Plan: Sepideh will return home and plans to consider outpatient speech therapy.
Pharmacy: [facility] [address]
PCP: Anastacio Mittal
[2023-08-31] MEDS: HEPARIN 5000 UNITS SC ×2 (17:08→23:33)
[2023-08-31] MEDS: CRESTOR 40 MG PO (17:08)
[2023-08-31] MEDS: TYLENOL 650 MG PO (21:10)
[2023-09-01] VITALS (8 sets, daily range): BP systolic 98–154; BP diastolic 60–92; PULSE 70; BMI 33.2
--- NOTE | 2023-09-01 02:58 | DOWNTIME ---
There was a [employer] Client [employer] Developer Downtime on 09/01/2023 from 0100 to 09/01/2023 at 0255. Downtime documentation of patient's care, including medication administrations, has been reconciled in the electronic record per guidelines. Refer to the
patient's paper chart under the miscellaneous tab to see printed paper medication records and downtime forms.
[2023-09-01 07:28] LABS: ALT (SGPT) 19 U/L (0-35); AST (SGOT) 21 U/L (14-36); Albumin 3.7 g/dl (3.5-5.0); Alkaline Phosphatase 67 U/L (38-126); Blood Urea Nitrogen 27 mg/dl (7-17); Calcium 9.5 mg/dl (8.4-10.2); Carbon Dioxide 29 mmol/L (22-30); Chloride 102 mmol/L (98-107); Estimated Creatinine Clearance 36 ml/min; Glucose 102 mg/dl (70-99); Potassium 3.8 mmol/L (3.5-5.1); Sodium 138 mmol/L (135-145); Total Bilirubin 0.4 mg/dl (0.2-1.3); eGFR 42.35
[2023-09-01 07:34] LABS: Hematocrit 35.7 % (37.0-47.0); Hemoglobin 11.9 g/dL (12.0-16.0); Mean Corp Hgb Conc. 33.3 g/dL (33.0-37.0); Mean Corpuscular Hgb 30.6 pg (27.0-31.0); Mean Corpuscular Volume 91.8 fL (81.0-99.0); Mean Platelet Volume 12.5 fL (7.4-10.4); Platelet Count 209 10^3/uL (130-400); Red Blood Cell Count 3.89 10^6/uL (4.20-5.40); Red Cell Dist. Width 13.1 % (11.5-14.5); White Blood Cell Count 6.1 10^3/uL (4.8-10.8)
[2023-09-01] MEDS: ASPIR LOW (ENTERIC COATED) 81 MG PO (07:41)
[2023-09-01] MEDS: ORETIC 25 MG PO (07:41)
[2023-09-01] MEDS: PLAVIX 75 MG PO (07:41)
[2023-09-01] MEDS: ZESTRIL 20 MG PO (07:42)
[2023-09-01] MEDS: HEPARIN SC (07:54)
--- NOTE | 2023-09-01 11:39 | W.PN.CD ---
Today's Communication / Plan
-
Overall patient is feeling a little better.
-[place] today with challenges and imaging the atrial closure device. No significant valvular disease no evidence of thrombus in left atrial appendage and only minimal plaque in the descending thoracic aorta. Full arch not well-seen. On saline
contrast study x 3 only a few isolated bubbles could be seen in the right atrium suggesting small residual degree of [id number] shunt.
Due to some of the limitations in imaging on [place] I have recommended a CT angiogram/TAVR protocol with focus on the atrial septum.
Impression / Plan
-
Background -
78-year-old female with PMHx significant for CVA x 2, (2000, 2017), PFO s/p closure (2000), HTN, HLD, ocular migraines, BPPV, JAZ, basal cell carcinoma, osteoporosis, diverticulitis, lumbar radiculopathy, anxiety presents to the hospital for
evaluation of dizziness, loss of balance, paresthesias in the right upper extremity and difficulty executing tasks with cell phone and TV remote, upon presentation diagnosed with acute CVA-on 08/30/2023. Cardiology consulted for evaluation of
possible etiology for stroke.
Impression -
Acute [id number]
-Patient still has had some issues with speech and with issues using her phone but overall felt that she has had improvement today.
-Left internal capsule/parietal lobe-subacute infarct identified.
-TEEoday with challenges and imaging the atrial closure device. No significant valvular disease no evidence of thrombus in left atrial appendage and only minimal plaque in the descending thoracic aorta. Full arch not well-seen. On saline
contrast study x 3 only a few isolated bubbles could be seen in the right atrium suggesting small residual degree of nsdg-gr-sxufd shunt.
Due to some of the limitations in imaging on [place] I have recommended a CT angiogram/TAVR protocol with focus on the atrial septum.
-
Systemic hypertension-
-On HCTZ.
Hyperlipidemia-
-On rosuvastatin 20 mg at home dose bumped to 40 mg.
History of patent foramen ovale-issues related to imaging as noted above
-Underwent minimal intervention for closure in 2000. Graduated out of cardiology follow-up in 2002.
-Not worked up in in a years after 2002.
Subjective-
Overall feels speech is better. Otherwise no new complaints
Data Reviewed -
Telemetry Summary - 08/31/23 - NSR, no abnormalities.
Echocardiogram-08/30/20230041-AXYT-76 to 65%, normal biventricular size and function. No abnormalities.
EKG-08/30/2023-normal sinus rhythm old inferior infarct.
NECK MRA - 08/30/23 -
Narrowing involving the proximal right ICA, measured diameter reduction of 41%. By measurement, and subjectively, this is unlikely to represent a hemodynamically significant stenosis.
Less than 25% diameter reduction of the left carotid bulb and left proximal ICA.
Head MRA - 08/30/23 - No significant stenosis involving Intracranial HTN
Brain MRI - 08/30/23 -
On the left, there is a focal area of abnormal restricted diffusion compatible with subacute infarction, corresponding to the region of decreased density seen on recent CT examination.
Mild to moderate diffuse atrophy. Mild to moderate T2 and FLAIR white matter hyperintensities, commonly seen with aging and usually attributed to small vessel ischemic disease.
Head CT - 08/30/23 - - Ill defined focus of hypoattenuation within the left internal capsule/parietal lobe, new compared o prior study, measuring 1.1 cm in diameter. Old infarct in the right occipital lobe.
Physical Exam
Vital Signs/Labs
Vital Signs
Temp Pulse Resp BP Pulse Ox
97.4 F 57 20 112/67 95
09/01/23 07:34 09/01/23 07:41 09/01/23 07:34 09/01/23 07:41 09/01/23 07:34
08/31/23 09/01/23 09/02/23
06:59 06:59 06:59
Actual Weight 81.278 kg 82.236 kg
09/01/23 05:57
09/01/23 05:57
Magnesium 2.0 mg/dl (1.6-2.3) 09/01/23 05:57
Triglycerides 106 mg/dl (10-149) 08/31/23 04:29
LDL Cholesterol, Calc 68 mg/dl 08/31/23 04:29
VLDL Cholesterol, Calc 21 mg/dl (0-30) 08/31/23 04:29
HDL Cholesterol 53 mg/dl 08/31/23 04:29
LAB Results
08/30/23
09:56
Troponin I < 0.012
Physical Exam
Constitutional: No acute distress
Cardiovascular: Rhythm & rate is regular
Respiratory: Respiratory effort normal
GI: Soft
Neuro/Psych: Alert
Data Reviewed
-
Date of Service: September 01, 2023
Medical Decision Making: Reviewed Test Results
X-Ray/CT/US/MRI/NUC/PET: Report Reviewed by me
Medical Tests (PFT, Pathology etc): Report Reviewed by me
Labs: Labs Reviewed by me
--- NOTE | 2023-09-01 12:14 | W.PN.NEURO.1 ---
Today's Communication / Plan
-
-Goal normotension
-Would place on aspirin and clopidogrel DAPT therapy for 4 weeks and then stop clopidogrel and transition to aspirin monotherapy after 4 weeks
-Small increase in rosuvastatin 40 mg daily her LDL is slightly less than 70 but would make sense to be slightly more aggressive and risk factor control
-Maciel antiphospholipid antibodies and lupus anticoag
-Would have outpatient follow-up with hematology given recurrent strokes testing for hypercoagulable state
-Outpatient link is acceptable
-Neurology follow-up 4 to 6-week as an outpatient
-Risk factor control diet exercise control of hypertension to continue
-No barriers to discharge from my standpoint
Neuro Assessment/Plan
Assessment
78-year-old woman with a past ministry of hypertension, hyperlipidemia, 2 previous ischemic strokes presented hospital with dizziness and word finding difficulty.
Brain MRI demonstrated a subcortical ischemic stroke in the left basal ganglia.
Patient reports a strong family history of hypertension along with a stroke in early age of her mother.
She had a minor stroke around 20 years ago in her early 50s and no clear cause was found so had PFO closed. She was started on Plavix at that time.
Reports another stroke or TIA around 6 to 10 years ago.
She has been on anti-hypertensive medications for around 20 years.
No recent unusual weight loss or appetite changes or history of cancer. History of DVT in her brother but no other history of DVT or PE in the family. Non-smoker
P2 Y12 assay would suggest efficacy of clopidogrel but on the other hand the fact that she has had a stroke with clopidogrel compliance would give some suggestion that we should consider changing antiplatelet therapy. Do not feel it would be
appropriate at this point to place the patient on systemic anticoagulation as there is no strong indication for this. Stroke not a typical embolic stroke on MRI brain.
Hypertension of longstanding nature and along with family history remain the most likely causes of her stroke. Do not feel that this is due to the PFO which was closed more than 20 years ago.
Stroke location is most typical of small vessel disease etiology it does not look like embolic stroke but this does not completely rule out a cardioembolic source of stroke.
Subjective/Objective
Subjective Data
Date of Service: September 01, 2023
No acute events, had [place], discussed medications, history of strokes, moving forward
Objective Data
Vital Signs
Temp Pulse Resp BP Pulse Ox
97.5 F 75 18 115/92 98
09/01/23 11:09 09/01/23 11:09 09/01/23 11:09 09/01/23 11:09 09/01/23 11:09
Lab Results
09/01/23 05:57
09/01/23 05:57
Sodium 138 mmol/L (135-145) 09/01/23 05:57
Potassium 3.8 mmol/L (3.5-5.1) 09/01/23 05:57
BUN 27 mg/dl (7-17) H 09/01/23 05:57
Glucose 102 mg/dl (70-99) H 09/01/23 05:57
Calcium 9.5 mg/dl (8.4-10.2) 09/01/23 05:57
LDL Cholesterol, Calc 68 mg/dl 08/31/23 04:29
Patient Allergies
penicillin G Allergy (Verified 08/30/23 18:25)
Swelling
Penicillins Allergy (Verified 08/30/23 18:25)
Swelling
warfarin Allergy (Verified 08/30/23 18:25)
Rash
Review of Systems
-
History Source: Patient
All other systems: Reviewed and negative
Constitutional: No Symptoms
EENT: No Symptoms Reported
Respiratory: No Symptoms
Cardiac: No Symptoms
Abdomen/GI: No Symptoms
Genitourinary: No Symptoms
Musculoskeletal: No Symptoms
Skin: No Symptoms
Neuro: Dizzy and See existing Neuro Note
Endocrine: No Symptoms
Hematologic / Lymphatic: No Symptoms
Allergy / Immunology: No Symptoms
Physical Exam
-
General: Comfortable
Eyes: No Ptosis
HEENT: Normocephalic
Neck: No Bruits Bilaterally
Respiratory: Clear to Auscultation
Cardiac: Regular Rhythm
GI: Normal Bowel Sounds
Skin: Unremarkable
Extremities: No Clubbing
Psych: Unremarkable
Extended Neurological Exam
Mood & Affect: Mood Unremarkable and Affect Unremarkable
Attention Span & Concentration: Awake, Alert and Interactive
Memory: Unremarkable
Tremor: Hand Tremor Absent
Involuntary Movement: None
Speech: Quality Unremarkable and Quantity Unremarkable; Negative Expressive Aphasia, Receptive Aphasia or Dysarthric
Cranial Nerve II: Left Eye: Pupillary Reactivity Unremarkable, Pupillary Size Unremarkable and Visual Rivera Intact
Cranial Nerve II: Right Eye: Pupillary Reactivity Unremarkable, Pupillary Size Unremarkable and Visual Rivera Intact
Muscle Strength, Overall: Full Throughout
Pronator Drift: No Drift in Upper Extremities
Deep Tendon Reflexes: Unremarkable Throughout
Data Reviewed
-
CT Head: Report Reviewed and Image Reviewed
MRI Lumbar Spine: Report Reviewed and Image Reviewed
MRA Head: Report Reviewed and Image Reviewed
MRA Neck: Report Reviewed and Image Reviewed
Echocardiogram: Report Reviewed
--- NOTE | 2023-09-01 13:22 | W.PN.HOSP.TC ---
Today's Communication/Plan
-
CT TAVR
Assessment / Plan
Assessment / Plan
Physical Exam
General: Comfortable and Conversant
HEENT: Anicteric and Moist mucous membranes
Respiratory: Clear and Non Labored Respirations
Cardiac: S1/S2 and Regular Rhythm
GI: Soft and Non Tender
Rectal: Deferred by Provider
Musculoskeletal: No Clubbing, No Cyanosis and No Edema
Skin: Warm and Dry
Neuro: Awake, Alert, Oriented
Psych: Calm
Acute Stroke of Left Internal Capsule
-Consult Neurology
-aspirin and clopidogrel DAPT therapy for 4 weeks and then stop clopidogrel and transition to aspirin monotherapy after 4 weeks
-antiphospholipid antibodies and lupus anticoag
-outpatient follow-up with hematology given recurrent strokes testing for hypercoagulable state
-LINQ outpatient
Neurology follow-up 4 to 6-week as an outpatient
-Check HgbA1c: 5.5; and Lipid 68
-Crestor increased to 40mg daily
-Cards consulted for PFO:
-[place] difficult study- Will perform CT TAVR study
--Check hypercoagulable labs as an outpatient in 6 weeks.
-PT/OT/ST
Essential Hypertension
-Goal is normotension
-Continue Lisinopril and HCTZ
Hyperlipidemia
-Continue Crestor
DVT proph: hsq
Code Status: Full Code
Total time spent on today's encounter was 50 minutes which included time spent in counseling the patient/family regarding diagnosis and treatment plan as listed above, goals of care, and symptom management. Case was discussed with nursing staff,
specialists, and care coordinators/case management. All labs and imaging personally reviewed by me. Remainder the time spent in detailed review of previous records, lab data, imaging, and other medical provider documentation.
Anticipated Discharge: Within 24 hours
Subjective/Interval History
-
Date of Service: September 01, 2023
no acute events
Objective Data
-
Labs:
Laboratory Results
09/01/23
05:57
WBC 6.1
Hgb 11.9 L
Hct 35.7 L
Plt Count 209 D
Sodium 138
Potassium 3.8
Chloride 102
Carbon Dioxide 29
BUN 27 H
Creatinine 1.3 H
Glucose 102 H
Calcium 9.5
Total Bilirubin 0.4
AST 21
ALT 19
Alkaline Phosphatase 67
Vital Signs:
Vital Signs
Temp Pulse Resp BP Pulse Ox
97.5 F 75 18 115/92 98
09/01/23 11:09 09/01/23 11:09 09/01/23 11:09 09/01/23 11:09 09/01/23 11:09
I&O
08/31/23 09/01/23 09/02/23
06:59 06:59 06:59
Intake Total 100 / 100 300 / 300
Balance 100 / 100 300 / 300
Review of Systems
-
History Source: Patient
All other systems: Not reviewed unless documented
Data Reviewed
-
MRI: Image personally visualized and interpreted and Report Reviewed by me
Labs: Labs Reviewed by me
--- NOTE | 2023-09-01 14:31 | PTCARENOTE ---
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 pt is AAO*3, Vss, room air. denies any pain. Sister at the bedside. call lim within the reach. will continue plan of care.
--- NOTE | 2023-09-01 14:50 | PN.CDI ---
CDI
- -
CDI:
Physician Documentation Request
Admit Date: 08/30/23 15:41
Dear Doctor Jimy,
Please review the following and provide your response in the progress notes.
Clinical Indicators:
Pt admitted for Acute Stroke.
Clarify which of the following accurately represents the patient's renal status:
Laboratory Tests
08/30/23 08/31/23 09/01/23
09:56 04:29 05:57
Creatinine 1.0 1.1 H 1.3 H
eGFR 58.02 51.75 42.35
Acute kidney injury (non-traumatic) - see criteria
CKD, please provide stage - see criteria
Insignificant abnormal lab value
Other
Criteria for SWATI*
1 Increase in serum creatinine by > or = to 0.3 mg/dL (> or = to 26.5 micromol/L) within 48 hours, OR
2 Increase in serum creatinine to > or = to 1.5 times baseline, which is known or presumed to have occurred within 7 days, OR
3 Urine volume < 0.5 nL/kg/hour for six hours
Stages of Chronic Kidney Disease*
Level Description GFR
G1 Normal or High >90
G2 Mildly decreased 60-89
G3a Mildly to moderately decreased 45-59
G3b Moderately to severely decreased 30-44
G4 Severely decreased 15-29
G5 Kidney failure <15
Use of terms such as suspected, likely, concern for, or probable (associated with a specific diagnosis that is being evaluated, monitored, or treated as if it exists) are acceptable and can be coded in the inpatient setting, when documented at the
time of discharge.
Thank you,
Hanna Weston RN,BSN
CDI Specialist
Available via [employer]
Please use your independent medical judgment in providing your response.
*Source: Kidney Disease: Improving Global Outcomes (KDIGO) 2012
[2023-09-01] MEDS: HEPARIN 5000 UNITS SC (16:30)
[2023-09-01] MEDS: CRESTOR 40 MG PO (17:41)
[2023-09-01] MEDS: MIRALAX 17 GRAMS PO (20:33)
[2023-09-01] MEDS: MELATONIN 3 MG PO (21:20)
[2023-09-02] MEDS: HEPARIN 5000 UNITS SC (00:01)
[2023-09-02 03:06] VITALS: BP 126/82
[2023-09-02 05:08] LABS: Hematocrit 33.2 % (37.0-47.0); Hemoglobin 11.4 g/dL (12.0-16.0); Mean Corp Hgb Conc. 34.3 g/dL (33.0-37.0); Mean Corpuscular Hgb 32.2 pg (27.0-31.0); Mean Corpuscular Volume 93.8 fL (81.0-99.0); Mean Platelet Volume 12.2 fL (7.4-10.4); Platelet Count 163 10^3/uL (130-400); Red Blood Cell Count 3.54 10^6/uL (4.20-5.40); Red Cell Dist. Width 12.8 % (11.5-14.5); White Blood Cell Count 6.6 10^3/uL (4.8-10.8)
[2023-09-02 05:17] VITALS: BMI 33.2
[2023-09-02 05:27] LABS: ALT (SGPT) 18 U/L (0-35); AST (SGOT) 20 U/L (14-36); Albumin 3.6 g/dl (3.5-5.0); Alkaline Phosphatase 66 U/L (38-126); Blood Urea Nitrogen 21 mg/dl (7-17); Calcium 9.5 mg/dl (8.4-10.2); Carbon Dioxide 28 mmol/L (22-30); Chloride 103 mmol/L (98-107); Estimated Creatinine Clearance 39 ml/min; Glucose 109 mg/dl (70-99); Sodium 140 mmol/L (135-145); Total Bilirubin 0.2 mg/dl (0.2-1.3); Total Protein 5.8 g/dl (6.3-8.2); eGFR 46.62
[2023-09-02 07:57] VITALS: BP 120/60
[2023-09-02] MEDS: ASPIR LOW (ENTERIC COATED) 81 MG PO (08:55)
[2023-09-02] MEDS: ZESTRIL 20 MG PO (08:55)
[2023-09-02] MEDS: ORETIC 25 MG PO (08:55)
[2023-09-02] MEDS: PLAVIX 75 MG PO (08:55)
--- NOTE | 2023-09-02 11:09 | W.PN.CD ---
Addendum entered and electronically signed by Sonny Robles MD 09/02/23 14:14:
should read: a few isolated bubbles passed from RA to LA suggesting small residual right to left shunt
Discussed CT with radiology: no LA thrombus or flow jet across occluder.
Discussed with team. Will continue with plan for DAPT as previously outlined; stroke is not embolic appearing, and likely not from shunt. No OAC at this time.
Will arrange for outpatient follow up to discuss rhythm monitoring with ILR.
Original Note:
Today's Communication / Plan
-
await CT read
to decide on DAPT vs eliquis based on results and discussion with team
Impression / Plan
-
Background -
78-year-old female with PMHx significant for CVA x 2, (2000, 2017), PFO s/p closure (2000), HTN, HLD, ocular migraines, BPPV, JAZ, basal cell carcinoma, osteoporosis, diverticulitis, lumbar radiculopathy, anxiety presents to the hospital for
evaluation of dizziness, loss of balance, paresthesias in the right upper extremity and difficulty executing tasks with cell phone and TV remote, upon presentation diagnosed with acute CVA-on 08/30/2023. Cardiology consulted for evaluation of
possible etiology for stroke.
Impression -
Acute CKK-ujbia-cueyn
-Left internal capsule/parietal lobe-subacute infarct identified.
-[place] 08/31: with challenges imaging the atrial closure device. No significant valvular disease no evidence of thrombus in left atrial appendage, and only minimal plaque in the descending thoracic aorta. Full arch not well-seen. On saline contrast
study x 3 only a few isolated bubbles could be seen in the right atrium suggesting small residual degree of caiw-cz-sduju shunt.
-Due to some of the limitations in imaging on [place], a CT angiogram/TAVR protocol with focus on the atrial septum was performed.
-discussed with radiology: will be read early afternoon
-to decide on DAPT vs eliquis based on results and discussion with team
Systemic hypertension-stable
-On HCTZ and lisinopril: continue
Hyperlipidemia-
-On rosuvastatin 20 mg at home dose and increased to 40 mg.
History of patent foramen ovale-issues related to imaging as noted above
-Underwent minimal intervention for closure in 2000. Graduated out of cardiology follow-up in 2002.
-Not worked up in in a years after 2002.
Subjective-
Overall feels speech is better. No new complaints
Data Reviewed -
Telemetry Summary - 08/31/23 - NSR, no abnormalities.
Echocardiogram-08/30/20233268-GWHP-30 to 65%, normal biventricular size and function. No abnormalities.
EKG-08/30/2023-normal sinus rhythm old inferior infarct.
NECK MRA - 08/30/23 -
Narrowing involving the proximal right ICA, measured diameter reduction of 41%. By measurement, and subjectively, this is unlikely to represent a hemodynamically significant stenosis.
Less than 25% diameter reduction of the left carotid bulb and left proximal ICA.
Head MRA - 08/30/23 - No significant stenosis involving Intracranial HTN
Brain MRI - 08/30/23 -
On the left, there is a focal area of abnormal restricted diffusion compatible with subacute infarction, corresponding to the region of decreased density seen on recent CT examination.
Mild to moderate diffuse atrophy. Mild to moderate T2 and FLAIR white matter hyperintensities, commonly seen with aging and usually attributed to small vessel ischemic disease.
Head CT - 08/30/23 - - Ill defined focus of hypoattenuation within the left internal capsule/parietal lobe, new compared o prior study, measuring 1.1 cm in diameter. Old infarct in the right occipital lobe.
Physical Exam
Vital Signs/Labs
Vital Signs
Temp Pulse Resp BP Pulse Ox
98.1 F 60 16 120/60 97
09/02/23 07:57 09/02/23 07:57 09/02/23 07:57 09/02/23 07:57 09/02/23 07:57
09/01/23 09/02/2309/02/24
06:59 06:59 06:59
Actual Weight 82.236 kg 82.27 kg
09/02/23 04:46
09/02/23 04:46
Magnesium 2.0 mg/dl (1.6-2.3) 09/02/23 04:46
Triglycerides 106 mg/dl (10-149) 08/31/23 04:29
LDL Cholesterol, Calc 68 mg/dl 08/31/23 04:29
VLDL Cholesterol, Calc 21 mg/dl (0-30) 08/31/23 04:29
HDL Cholesterol 53 mg/dl 08/31/23 04:29
Physical Exam
Constitutional: No acute distress and Comfortable
EENT: Moist mucous membranes
Cardiovascular: Rhythm & rate is regular, Pedal edema is absent, JVD pressure is normal and Systolic murmur absent
Respiratory: Respiratory effort normal, Lungs clear to auscul. and Wheeze Absent
GI: Soft, Distention absent and Flat
Neuro/Psych: AO x 3
Data Reviewed
-
Date of Service: September 02, 2023
EKG: Other (Tele: NSR, no A fib)
Echo: Report Reviewed by me
Labs: Labs Reviewed by me
[2023-09-02 11:51] VITALS: BP 124/81; PULSE 67; O2SAT 99
[2023-09-02] MEDS: MILK OF MAGNESIA 30 ML PO (12:32)
--- NOTE | 2023-09-02 13:07 | CM ---
Addendum entered by Vera Sainz 09/02/23 14:53:
I met with Sepideh this afternoon and provided her with the phone number to arrange outpatient therapy. I advised her to contact her PCP for a prescription for outpatient therapy, as per outpatient therapy, that is what they would need since PCP
will be the physician with whom they communicate.
Plan: Discharge to home with outpatient therapy. Pt will be going on vacation, so will not pursue OP therapy until she returns home, likely August 13.
Original Note:
CM continues to follow for discharge planning needs. Pt will be discharged to home with plan for outpatient PT and ST. Sepideh would like to come to outpatient therapy.
Call placed to Outpatient Therapy to assist patient with process for setting up PT and ST outpatient treatment. VM left; await return call and will discuss further with Sepideh.
--- NOTE | 2023-09-02 14:49 | W.PN.HOSP.TC ---
Addendum entered and electronically signed by Alvaro Ahn MD 09/05/23 17:52:
CKD G3a
Addendum entered and electronically signed by Alvaro Ahn MD 09/02/23 15:21:
[id number]
Original Note:
Today's Communication/Plan
-
-aspirin and clopidogrel DAPT therapy for 4 weeks and then stop clopidogrel and transition to aspirin monotherapy after 4 weeks
-antiphospholipid antibodies and lupus anticoag
-outpatient follow-up with hematology given recurrent strokes testing for hypercoagulable state
-LINQ outpatient with cardiology
-Neurology follow-up 4 to 6-week as an outpatient
-Crestor increased to 40mg daily
--Check hypercoagulable labs as an outpatient in 6 weeks.
F/u PCP, Cards, hematology, neurology outpatient
Assessment / Plan
Assessment / Plan
Respiratory: Clear and Non Labored Respirations
Cardiac: S1/S2 and Regular Rhythm
GI: Soft and Non Tender
Rectal: Deferred by Provider
Musculoskeletal: No Clubbing, No Cyanosis and No Edema
Skin: Warm and Dry
Neuro: Awake, Alert, Oriented
Psych: Calm
Acute Stroke of Left Internal Capsule
-Consult Neurology
-aspirin and clopidogrel DAPT therapy for 4 weeks and then stop clopidogrel and transition to aspirin monotherapy after 4 weeks
-antiphospholipid antibodies and lupus anticoag
-outpatient follow-up with hematology given recurrent strokes testing for hypercoagulable state
-LINQ outpatient with cardiology
Neurology follow-up 4 to 6-week as an outpatient
-Check HgbA1c: 5.5; and Lipid 68
-Crestor increased to 40mg daily
-Cards consulted for PFO:
-[place] difficult study- CT TAVR study: no obvious flow jet or thrombus accross occluder
--Check hypercoagulable labs as an outpatient in 6 weeks.
-PT/OT/ST
Essential Hypertension
-Goal is normotension
-Continue Lisinopril and HCTZ
Hyperlipidemia
-Continue Crestor
DVT proph: hsq
Code Status: Full Code
Physical Exam
General: Comfortable and Conversant
HEENT: Anicteric and Moist mucous membranes
More than 30 minutes spent in discharge including
Final examination of the patient
Summarizing hospital stay
Instructions for continuing care to all relevant caregivers
Preparation of discharge records, prescriptions, and referral forms
Total time spent (35 in minutes):
Anticipated Discharge: Today
Subjective/Interval History
-
Date of Service: September 02, 2023
no obvious evidence of flow jet or LA thrombus across occluder CT TAVR,
Objective Data
-
Labs:
Laboratory Results
09/02/23
04:46
WBC 6.6
Hgb 11.4 L
Hct 33.2 L
Plt Count 163 D
Sodium 140
Potassium 4.0
Chloride 103
Carbon Dioxide 28
BUN 21 H
Creatinine 1.2 H
Glucose 109 H
Calcium 9.5
Total Bilirubin 0.2
AST 20
ALT 18
Alkaline Phosphatase 66
Vital Signs:
Vital Signs
Temp Pulse Resp BP Pulse Ox
98.1 F 60 16 120/60 97
09/02/23 07:57 09/02/23 07:57 09/02/23 07:57 09/02/23 07:57 09/02/23 08:00
I&O
09/01/23 09/02/23 09/03/23
06:59 06:59 06:59
Intake Total 300 / 300 600 / 600
Balance 300 / 300 600 / 600
Review of Systems
-
History Source: Patient
All other systems: Not reviewed unless documented
Data Reviewed
-
CT Scan: Image personally visualized and interpreted and Report Reviewed by me
MRI: Image personally visualized and interpreted and Report Reviewed by me
Labs: Labs Reviewed by me
--- NOTE | 2023-09-02 14:57 | W.DS.TRANS ---
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
-
Discharge Instructions:
Discharge Diagnosis/Procedures Acute Stroke of Left Internal Capsule
Diet Low Cholesterol,Low Fat
Activity As tolerated
Instructions:
Stand-Alone Forms:
Changes to Home Medications: Yes
Discharge Medications:
DC Medications w/original date entered in [employer]
hydrochlorothiazide 25 mg tablet 25 mg PO DAILY Fluid Retention/Swelling 01/05/17
lisinopril 20 mg tablet 20 mg PO DAILY Blood Pressure 01/05/17
peg 400-propylene glycol (PF) 0.4 %-0.3 % eye drops in a dropperette (Systane (PF)) 1 drp BOTH EYES BIDPRN PRN dry eyes 08/30/23
aspirin 81 mg tablet,delayed release 81 mg PO DAILY #90 tabs 09/02/23
clopidogrel 75 mg tablet 75 mg PO DAILY 28 days #28 tabs 09/02/23
rosuvastatin 40 mg tablet 40 mg PO QPM 30 days #30 tabs 09/02/23
Home Medication Changes
aspirin 81 mg tablet,delayed release 81 mg PO DAILY #90 tabs 09/02/23
clopidogrel 75 mg tablet 75 mg PO DAILY 28 days #28 tabs 09/02/23
rosuvastatin 40 mg tablet 40 mg PO QPM 30 days #30 tabs 09/02/23
Pending Results: No
== END 2023-09-02 15:59 | disposition home or self-care (01) | DRG 66 ==
LOC: 4 EAST ACU 15:41
PROVIDERS: Physician Assistant Medical; Student in an Organized Health Care Education/Training Program; ADMITTING PHYSICIAN Internal Medicine; CONSULT PHYSICIAN Internal Medicine Cardiovascular Disease; EMERGENCY PHYSICIAN Emergency Medicine; FAMILY PHYSICIAN Internal Medicine; OTHER PHYSICIAN Psychiatry & Neurology Neurology
DX: I63.9 Cerebral infarction, unspecified (principal); I10 Essential (primary) hypertension; E78.5 Hyperlipidemia, unspecified; M54.16 Radiculopathy, lumbar region; N18.31 Chronic kidney disease, stage 3a
CPT/HCPCS: 70450; 70544; 70548; 70551; 71275; 80048; 80053; 80061; 83036; 83735; 84484; 85025; 85027; 85576; 85610; 85613; 85730; 86146; 86147; 86148; 92523; 93005; 93306; 93312; 93320; 93325; 97116; 97129; 97163; 97166; 99285; A9585; Q9957; Q9967

== ENCOUNTER 2023-09-28 14:00 | Outpatient (RCR) | payer OTHER, SELFPAY | END 2023-09-28 23:59 | disposition home or self-care (01) | LOC: RPT 14:00 | PROVIDERS: ATTENDING PHYSICIAN Internal Medicine | DX: I69.320 Aphasia following cerebral infarction (principal); Z73.6 Limitation of activities due to disability; I69.398 Other sequelae of cerebral infarction; I10 Essential (primary) hypertension; M62.81 Muscle weakness (generalized); Z91.81 History of falling | CPT/HCPCS: 92507; 92523; 97110; 97162; 97167; 97530 ==

== ENCOUNTER 2023-11-19 07:53 | Day surgery (SDC) | payer OTHER, SELFPAY ==
[2023-11-15 10:31] VITALS: BMI 31.8
--- NOTE | 2023-11-19 10:02 | ITS.CL.IMPLP ---
Director Mobile - Implant Loop
Implant Loop
Procedure Report:
Date of Procedure: November 19, 2023.
Procedure: Insertable Loop Recorder Implant.
Indication: Embolic stroke of unknown source.
Performing physician: Payam Stroud MD, [facility].
Implant: [employer]; Reveal LINQII; Model# [id number]; Serial# [id number].
Technique: The patient was prepped and draped in the usual fashion. A time-out was performed. No intravenous sedation was administered. Local anesthetic was applied to the left pre-pectoral subcutaneous tissue. Using the insertion kit an incision
was made left of the midline in the fourth intercostal space and the device was implanted subcutaneously and directed towards the nipple. Hemostasis was excellent. The skin was closed with steri-strips. There was no blood loss. There were no
complications. No fluoroscopy. R waves measured 0.28 mV and P waves were visible.
Final Programming: Detections: Afib, tachy at 160 bpm, analia at 30 bpm, pause at 3 sec.
Conclusion: Uncomplicated insertable loop implant.
Recommendation: Routine post-insertable loop care. The device is MRI conditional without a waiting period and up to 3 Jodie.
cc: Sonny Robles MD, PhD and Anastacio Mittal MD.
== END 2023-11-19 09:57 | disposition home or self-care (01) ==
LOC: CATH 07:53
PROVIDERS: ATTENDING PHYSICIAN Internal Medicine Cardiovascular Disease; FAMILY PHYSICIAN Internal Medicine; OTHER PHYSICIAN Internal Medicine
DX: Z09 Encounter for follow-up examination after completed treatment for conditions other than malignant neoplasm (principal); Z86.73 Personal history of transient ischemic attack (TIA), and cerebral infarction without residual deficits; I12.9 Hypertensive chronic kidney disease with stage 1 through stage 4 chronic kidney disease, or unspecified chronic kidney disease; N18.30 Chronic kidney disease, stage 3 unspecified; E78.5 Hyperlipidemia, unspecified; G47.33 Obstructive sleep apnea (adult) (pediatric); Z79.82 Long term (current) use of aspirin
CPT/HCPCS: 33285; 93005; C1764

== ENCOUNTER → 2024-01-25 07:47 | Outpatient (REF) | payer OTHER, SELFPAY | LOC: HWRAD 07:47 | PROVIDERS: ATTENDING PHYSICIAN Internal Medicine | DX: N28.9 Disorder of kidney and ureter, unspecified (principal); Z86.73 Personal history of transient ischemic attack (TIA), and cerebral infarction without residual deficits; I10 Essential (primary) hypertension | CPT/HCPCS: 76770 ==

== ENCOUNTER → 2024-02-02 06:48 | Outpatient (REF) | payer OTHER, SELFPAY | LOC: PAVMRI 06:48 | PROVIDERS: ATTENDING PHYSICIAN Psychiatry & Neurology Neurology; FAMILY PHYSICIAN Internal Medicine | DX: I63.432 Cerebral infarction due to embolism of left posterior cerebral artery (principal) | CPT/HCPCS: 70551 ==